=== PATIENT | male | born 1975 | race Caucasian/White ===

== ENCOUNTER 2024-02-25 08:45 | Inpatient (IN) | payer OTHER ==
--- NOTE | 2024-02-25 09:02 | ED ---
General Adult HPI - General Stated complaint: Chest pain Time Seen by Provider: 02/25/24 08:49 Source: patient, EMS Mode of arrival: EMS Limitations: no limitations - History of Present Illness Initial comments: Patient is a 48-year-old male presenting to the emergency department with concerns with chest discomfort. Discomfort started last night and has progressed since that time. Discomfort is starting to become severe. Patient had aspirin and nitroglycerin by EMS with mild improvement of symptoms. Discomfort feels like burning. Patient did have some nausea earlier however that has resolved. No dyspnea. No cardiac history. No history of similar symptoms previously. - Related Data Allergies Allergy/AdvReac Type Severity Reaction Status Date / Time No Known Allergies Allergy Verified 02/25/24 09:01 Review of Systems ROS Statement: Those systems with pertinent positive or pertinent negative responses have been documented in the HPI. ROS Other: All systems not noted in ROS Statement are negative. Constitutional: Denies: fever Eyes: Denies: eye pain ENT: Denies: ear pain Respiratory: Denies: dyspnea Cardiovascular: Reports: as per HPI, chest pain Gastrointestinal: Denies: abdominal pain Musculoskeletal: Denies: back pain Past Medical History Past Medical History: No Reported History Smoking Status: Current every day smoker Past Alcohol Use History: None Reported Past Drug Use History: None Reported General Exam Limitations: no limitations General appearance: alert, in no apparent distress Head exam: Present: normocephalic Eye exam: Present: normal appearance Neck exam: Present: normal inspection Respiratory exam: Present: normal lung sounds bilaterally Cardiovascular Exam: Present: regular rate, normal rhythm, normal heart sounds Expanded Peripheral pulses: 2+: Radial (R), Radial (L), Posterior Tibialis (R), Posterior Tibialis (L) GI/Abdominal exam: Present: soft. Absent: tenderness Extremities exam: Present: normal inspection. Absent: pedal edema, calf tenderness Neurological exam: Present: alert Psychiatric exam: Present: normal affect, normal mood Skin exam: Present: normal color Course Vital Signs 02/25/24 02/25/24 02/25/24 08:58 09:00 09:42 Temperature 98 F Pulse Rate 74 71 Respiratory 20 20 20 Rate Blood Pressure 118/77 111/76 O2 Sat by Pulse 100 99 Oximetry - Reevaluation(s) Reevaluation #1: 02/25/24 0858 Cardiology has been paged EKG Findings - EKG Results: EKG: interpreted by ERMD (Septal Q waves with borderline ST change. Inferior ST depression.), sinus rhythm, normal axis Medical Decision Making - Medical Decision Making EKG #2 also interpreted by myself shows sinus rhythm with a rate of 73. Normal axis. Septal Q waves with borderline ST change. Inferior ST depression. EKG #3 also interpreted by myself shows sinus rhythm with a rate of 70. Normal axis. Septal Q waves with nonspecific borderline ST change, Case was discussed with Dr. Piña who did review EKGs and does not recommend STEMI activation. EKG #3 at 9:46 AM shows sinus rhythm with a rate of 78. Normal axis. Septal Q waves with ST elevation. ST depression inferior and lateral. Patient reevaluated with increasing symptoms. EKG is worsening. STEMI alert has been called. Was pt. sent in by a medical professional or institution (, PA, EMPLOYMENT PROGRAM REPRESENTATIVE, urgent care, hospital, or skilled nursing...) When possible be specific @ -No Did you speak to anyone other than the patient for history (EMS, parent, family, police, friend...)? What history was obtained from this source @ -No Did you review nursing and triage notes (agree or disagree)? Why? @ -I reviewed and agree with nursing and triage notes Were old charts reviewed (outside hosp., previous admission, EMS record, old EKG, old radiological studies, urgent care reports/EKG's, skilled nursing records)? Report findings @ -No old charts were reviewed Differential Diagnosis (chest pain, altered mental status, abdominal pain women, abdominal pain men, vaginal bleeding, weakness, fever, dyspnea, syncope, headache, dizziness, GI bleed, back pain, seizure, CVA, palpatations, mental health, musculoskeletal)? @ -Differential Chest Pain: Stable Angina, Unstable Angina, STEMI, NSTEMI Aortic Dissection, Pneumothorax, Musculoskeletal, Esophageal Spasm GERD, Cholecystitis, Pancreatitis, Zoster, th is is not meant to be an all-inclusive list. EKG interpreted by me (3pts min.). @ -As above X-rays interpreted by me (1pt min.). @ -Chest x-ray interpreted by myself shows no acute process CT interpreted by me (1pt min.). @ -None done U/S interpreted by me (1pt. min.). @ -None done What testing was considered but not performed or refused? (CT, X-rays, U/S, labs)? Why? @ -None What meds were considered but not given or refused? Why? @ -None Did you discuss the management of the patient with other professionals (professionals i.e. , PA, EMPLOYMENT PROGRAM REPRESENTATIVE, lab, RT, psych nurse, social services designee, seismographer, teacher, dog control officer, employment case manager)? Give summary @ -Case discussed with Dr. Piña who will take patient to the [facility]. See above regarding additional first discussion. Was smoking cessation discussed for >3mins.? @ -No Was critical care preformed (if so, how long)? @ -33 minutes critical care time Were there social determinants of health that impacted care today? How? (Homelessness, low income, unemployed, alcoholism, drug addiction, transportation, low edu. Level, literacy, decrease access to med. care, alf, rehab)? @ -No Was there de-escalation of care discussed even if they declined (Discuss DNR or withdrawal of care, Hospice)? DNR status @ -No What co-morbidities impacted this encounter? (DM, HTN, Smoking, COPD, CAD, Cancer, CVA, ARF, Chemo, Hep., AIDS, mental health diagnosis, sleep apnea, morbid obesity)? @ -Tobacco use Was patient admitted / discharged? Hospital course, mention meds given and route, prescriptions, significant lab abnormalities, going to OR and other pertinent info. @ -Patient presents with chest discomfort with mild relief with nitro. Symptoms worsen and EKG and the fourth time shows STEMI. Patient will be admitted to the [facility]. [facility] paged for admission. Undiagnosed new problem with uncertain prognosis? @ -No Drug Therapy requiring intensive monitoring for toxicity (Heparin, Nitro, Insulin, Cardizem)? @ -No Were any procedures done? @ -No Diagnosis/symptom? @ -STEMI Acute, or Chronic, or Acute on Chronic? @ -Acute Uncomplicated (without systemic symptoms) or Complicated (systemic symptoms)? @ -Default Side effects of treatment? @ -No Exacerbation, Progression, or Severe Exacerbation? @ -No Poses a threat to life or bodily function? How? (Chest pain, [place], PA, pneumonia, PE, COPD, DKA, ARF, appy, cholecystitis, CVA, Diverticulitis, Homicidal, Suicidal, threat to staff... and all critical care pts) @ -Threat to cardiac function - Lab Data Result diagrams: 02/25/24 08:57 Lab Results 02/25/24 02/25/24 Range/Units 08:57 08:57 PT 10.3 (10.0-12.5) sec INR 0.9 (<1.2) APTT 24.2 (22.0-30.0) sec Sodium 137 (137-145) mmol/L Potassium 4.2 (3.5-5.1) mmol/L Chloride 102 (98-107) mmol/L Carbon Dioxide 23 (22-30) mmol/L Anion Gap 12 mmol/L BUN 25 H (9-20) mg/dL Creatinine 0.90 (0.66-1.25) mg/dL Est GFR (CKD-EPI)AfAm >90 (>60 ml/min/1.73 sqM) Est GFR (CKD-EPI)NonAf >90 (>60 ml/min/1.73 sqM) Glucose 123 H (74-99) mg/dL Calcium 10.9 H (8.4-10.2) mg/dL Magnesium 1.8 (1.6-2.3) mg/dL Total Bilirubin 0.3 (0.2-1.3) mg/dL AST 38 (17-59) U/L ALT 42 (4-49) U/L Alkaline Phosphatase 171 H (38-126) U/L Total Protein 7.0 (6.3-8.2) g/dL Albumin 4.6 (3.5-5.0) g/dL Critical Care Time Critical Care Time: Yes Disposition Clinical Impression: ST elevation myocardial infarction (STEMI) Disposition: ADMITTED IP TO THIS HOSP Condition: Serious Is patient prescribed a controlled substance at d/c from ED?: No Referrals: None,Stated [Primary Care Provider] - 1-2 days Time of Disposition: 09:54
[2024-02-25] MEDS: NITROGLYCERIN OINT 1 INCH/GM PACKET TOPICAL STA (09:17)
[2024-02-25] MEDS: MORPHINE SULFATE 4 MG/ML SYRINGE IV STA (09:17)
[2024-02-25] MEDS: ASPIRIN 81 MG PO STA (09:17)
[2024-02-25 09:26] LABS: INR 0.9 (<1.2); Partial Thromboplastin Time 24.2 sec (22.0-30.0); Prothrombin Time 10.3 sec (10.0-12.5)
[2024-02-25 09:39] LABS: ALT 42 U/L (4-49); AST 38 U/L (17-59); African American GFR (CKD) >90 (>60 ml/min/1.73 sqM); Albumin 4.6 g/dL (3.5-5.0); Alkaline Phosphatase 171 U/L (38-126); Anion Gap 12 mmol/L; Blood Urea Nitrogen 25 mg/dL (9-20); Calcium 10.9 mg/dL (8.4-10.2); Carbon Dioxide 23 mmol/L (22-30); Chloride 102 mmol/L (98-107); Glucose 123 mg/dL (74-99); Magnesium 1.8 mg/dL (1.6-2.3); Non-African American GFR(CKD) >90 (>60 ml/min/1.73 sqM); Potassium 4.2 mmol/L (3.5-5.1); Sodium 137 mmol/L (137-145); Total Bilirubin 0.3 mg/dL (0.2-1.3)
[2024-02-25] MEDS ORDERED: NITROGLYCERIN SL TABS 0.4 MG TAB SUBLINGUAL PRN (09:54)
[2024-02-25] MEDS: HEPARIN SODIUM 1,000 UN/ML (10ML VL) IV ONE ×2 (10:08→10:25)
[2024-02-25] MEDS: LIDOCAINE 1% INJ 10MG/ML (20 ML MDV) SQ ONE (10:08)
[2024-02-25] MEDS: MIDAZOLAM 2 MG/2 ML VIAL IVP ONE ×2 (10:08→10:46)
[2024-02-25] MEDS: fentaNYL (PF) 50 MCG/1 ML VIAL IVP ONE (10:08)
[2024-02-25] MEDS: ATORVASTATIN 80 MG TAB PO STA (10:08)
[2024-02-25 10:09] LABS: Basophils # (A) 0.1 k/uL (0-0.2); Basophils % (A) 0 %; Eosinophils # (A) 0.1 k/uL (0-0.7); Eosinophils % (A) 1 %; HCT 44.8 % (39.0-53.0); HGB 15.1 gm/dL (13.0-17.5); Lymphocytes # (A) 2.1 k/uL (1.0-4.8); Lymphocytes % (A) 19 %; MCH 34.1 pg (25.0-35.0); MCHC 33.7 g/dL (31.0-37.0); Mean Platelet Volume 6.9; Monocytes # (A) 0.5 k/uL (0-1.0); Monocytes % (A) 5 %; Neutrophils # (A) 7.7 k/uL (1.3-7.7); Neutrophils % (A) 72 %; Platelet Count 241 k/uL (150-450); RBC 4.43 m/uL (4.30-5.90); RDW 11.8 % (11.5-15.5); WBC 10.7 k/uL (3.8-10.6)
[2024-02-25] MEDS: SODIUM CHLORIDE 0.9% 1,000 ML IV ONE (10:10)
[2024-02-25] MEDS: VERAPAMIL 2.5 MG/ML 4 ML VIAL INTRAARTER ONE (10:10)
--- NOTE | 2024-02-25 10:10 | XR ---
EXAMINATION TYPE: XR chest 2V DATE OF EXAM: 02/25/2024 9:31 AM COMPARISON: None CLINICAL INDICATION: Male, 48 years old with history of Chest Pain, , TECHNIQUE: AP and lateral views FINDINGS: The cardiomediastinal silhouette, aorta, and pulmonary vasculature are within normal limits. Hazy hailey g densities relating to overlying soft tissue. Otherwise, lungs and pleural spaces are clear. IMPRESSION: No acute cardiopulmonary process. [facility], , 02/25/2024 10:08 AM
[2024-02-25] MEDS: NITROGLYCERIN 1000MCG/10ML SYRINGE INTRACORON ONE (10:16)
[2024-02-25] MEDS: TICAGRELOR 90 MG TAB PO ONE (10:25)
--- NOTE | 2024-02-25 10:33 | P.CRDCN ---
History of Present Illness Consult date: 02/25/24 History of present illness: HISTORY OF PRESENTING ILLNESS 48-year-old male with no prior cardiovascular history presented to the hospital because of new onset substernal chest pressure and chest squeezing sensation. Initially on admission to the ER, his initial EKG showed sinus rhythm with 0.[address] elevations in V1 and V2. This was not reading the STEMI criteria. During his stay in the ER, he had worsening of his symptoms and repeat ECG showed significant change with increased ST elevations in V1 V2 and V3. For this Durable Medical Equipment Repairer was activated based on the EKG from 9:48 AM. Patient denies any prior cardiovascular history. He denies any prior history of stroke or any recent surgeries. Social Hx: Does report smoking 1 pack/day. Denies any marijuana use. Denies any heavy alcohol use or any drug use. Reports occasional alcohol use. Family Hx: Does report family history of coronary artery disease hypertension and diabetes. REVIEW OF SYSTEMS 14 point review of system is negative except what is mentioned above in HPI. PHYSICAL EXAMINATION Neck: Brisk carotid upstroke, no jugular venous distention. Lungs: Clear to auscultation. Heart: Regular rate and rhythm, S1-S2, no S3, no murmur or rub. Abdomen: Soft nontender, positive bowel sounds. Extremities: No edema, intact distal pulses. Neuro: Alert, oritented, no focal deficits. Detailed neuro exam was not performed. ASSESSMENT Anterior STEMI Tobacco smoker PLAN Plan for emergent cardiac authorization Obtain echocardiogram Obtain NT-proBNP, HbA1c, lipid panels, TSH levels Further recommendations to follow cath results Twin Piña MD, FACC, RPVI Thank you for allowing [facility] to participate in this patient's care. Feel free to reach out in case of any followup questions. Past Medical History Past Medical History: No Reported History Additional Past Medical History / Comment(s): kidney stone Additional Past Surgical History / Comment(s): orak surgery Smoking Status: Current every day smoker Past Alcohol Use History: None Reported Past Drug Use History: None Reported Medications and Allergies Allergies Allergy/AdvReac Type Severity Reaction Status Date / Time No Known Allergies Allergy Verified 02/25/24 09:01 Physical Exam Vitals: Vital Signs Temp Pulse Resp BP Pulse Ox 02/25/24 09:50 45 L 20 101/60 98 02/25/24 09:42 20 02/25/24 09:00 71 20 111/76 99 02/25/24 08:58 98 F 74 20 118/77 100 Intake and Output 02/24/24 02/25/24 02/25/24 22:59 06:59 14:59 Other: Weight 88.451 kg Results 02/25/24 08:57 02/25/24 08:57 Cardiac Enzymes 02/25/24 Range/Units 08:57 AST 38 (17-59) U/L Coagulation 02/25/24 Range/Units 08:57 PT 10.3 (10.0-12.5) sec APTT 24.2 (22.0-30.0) sec CBC 02/25/24 Range/Units 08:57 WBC 10.7 H (3.8-10.6) k/uL RBC 4.43 (4.30-5.90) m/uL Hgb 15.1 (13.0-17.5) gm/dL Hct 44.8 (39.0-53.0) % Plt Count 241 (150-450) k/uL Comprehensive Metabolic Panel 02/25/24 Range/Units 08:57 Sodium 137 (137-145) mmol/L Potassium 4.2 (3.5-5.1) mmol/L Chloride 102 (98-107) mmol/L Carbon Dioxide 23 (22-30) mmol/L BUN 25 H (9-20) mg/dL Creatinine 0.90 (0.66-1.25) mg/dL Glucose 123 H (74-99) mg/dL Calcium 10.9 H (8.4-10.2) mg/dL AST 38 (17-59) U/L ALT 42 (4-49) U/L Alkaline Phosphatase 171 H (38-126) U/L Total Protein 7.0 (6.3-8.2) g/dL Albumin 4.6 (3.5-5.0) g/dL Current Medications Generic Name Dose Route Start Last Admin Trade Name Freq PRN Reason Stop Dose Admin Aspirin 325 mg 02/26/24 09:00 Aspirin 325 Mg Tab PO DAILY [facility] Heparin Sodium/Sodium Chloride 250 mls @ 10 mls/hr 02/25/24 10:00 25,000 unit/ Sodium Chloride IV .Q24H [facility] Protocol 11.306 UNITS/KG/HR Nitroglycerin 0.4 mg 02/25/24 09:54 Nitroglycerin Sl Tabs 0.4 Mg Tab SUBLINGUAL Q5M PRN Chest Pain Intake and Output 02/24/24 02/25/24 02/25/24 22:59 06:59 14:59 Other: Weight 88.451 kg Patient Weight 02/26/24 06:59 Weight 88.451 kg 02/25/24 08:57 02/25/24 08:57
[2024-02-25] MEDS: IOPAMIDOL-370 100ML BTL INJ ONE ×2 (10:36→11:15)
--- NOTE | 2024-02-25 10:41 | P.CARDCATH ---
Date of Procedure: 02/25/24 Description of Procedure: DIAGNOSTIC CORONARY ANGIOGRAPHY and LEFT HEART CATH REPORT PROCEDURES PERFORMED: Left heart catheterization Selective coronary angiography Moderate conscious sedation 13 mins Right radial access INDICATION: Anterior STEMI 48-year-old presented to the hospital because of increased substernal chest pressure which started suddenly this morning. EKG in the ER showed ST elevations in V1 and V2 concerning of anterior STEMI. For this Property Insurance Claims Examiner was activated and patient was taken to the Property Insurance Claims Examiner CONSENT: I have explained the procedural steps of above-mentioned procedures in layman's terms to the patient. I discussed the risks (including but not limited to stroke, emergent vascular or cardiac surgery or ), benefits and alternative therapies for the above-mentioned procedure. I discussed the risks of sedation/analgesia and blood product administration (if indicated). The patient has indicated understanding and acceptance of these risks. Conscious Sedation: Patient's ECG, heart rate, blood pressure, pulse oximetry were monitored throughout the duration of procedure under my direct supervision. [2] mg Versed and [50] mcg Fentanyl were used for induction of moderate conscious sedation. Total duration of moderate concious sedation [25] minutes. PROCEDURE: After explaining the risks, benefits and alternatives of the above mentioned procedures in detail to the patient, informed consent was obtained. Patient was taken to the catheterization lab, prepped and draped in usual sterile fashion using universal precuations. Ultrasound was used to identify the radial artery. 1% lidocaine was infiltrated over the right radial artery. A 6-Mohawk sheath was placed and secured in the right radial artery using modified Seldinger technique. The sheath was flushed and 5 mg verapamil was administered intra-arterially. J tipped wire was advanced under fluoroscopic guidance. 4000 units of IV heparin was given in the ER along with 325 mg of aspirin. Over the wire JR4 diagnostic catheter was advanced. The wire in place the catheter was manipulated to cross the aortic valve and entered into LV under fluoroscopy guidance. The wire was removed and the catheter was flushed. LV pressures were obtained and pullback was performed under fluoroscopy. Catheter was manipulated to selectively engage the right coronary ostium. Right coronary angiography was performed in different angiographic projections. The JR4 diagnostic catheter was exchanged for a JL 3.5 diagnostic catheter over the J-wire. The wire was removed, catheter was flushed and manipulated under fluoroscopy to selectively engaged the left coronary ostium. Left coronary angioplasty was performed in different angiographic projections. Catheter was removed over the wire. Radial sheath was flushed. The right radial sheath was removed and a TR band was placed with excellent patent hemostasis was achieved. The patient tolerated the procedure well. Patient was transported back to the post catheterization holding area in stable condition. Angiographic images were reviewed in detail. HEMODYNAMICS: Aortic Pressure: 140/90 mmHg. LV pressure: 140/10 mmHg. LVEDP 25 mmHg. There was no significant gradient across the aortic valve. SELECTIVE CORONARY ARTERIOGRAPHY: LEFT MAIN: The left main is short and large caliber vessel. It bifurcates into the LAD and circumflex. Left main appears angiographically normal. LEFT ANTERIOR DESCENDING CORONARY ARTERY: LAD is a large caliber vessel which wraps around to the apex. Proximal LAD appears angiographically normal. Mid LAD just after giving small diagonal branch and a septal branch is 100% occluded with JUANITA 0 flow. There are faint septal collaterals from right sided filling the LAD. LEFT CIRCUMFLEX CORONARY ARTERY: It is nondominant vessel. Left circumflex is a moderate caliber vessel. Proximal LCx has 30% stenosis. In mid segment it trifurcates and medium size OM1 branch, small OM 2 and a small AV groove branch. Midportion of OM1 has 90 to 99%. JUANITA-3 flow RIGHT CORONARY ARTERY: Dominant vessel. RCA is medium caliber vessel. Proximal RCA has mild luminal irregularities. Mid RCA has 40% eccentric stenosis. Gives rise to a small RV marginal branch. Distal RCA has mild luminal irregularities in the range of 20-30%. It bifurcates into PDA and PL branches. They have my luminal irregularities. IMPRESSION: Anterior STEMI due to 100% mid LAD stenosis, JUANITA 0 flow 90 to 99% mid OM1 stenosis 40% mid RCA disease PLAN: Emergent PCI of LAD by Dr. Urrutia. Case discussed Staged PCI of OM1 prior to discharge Further recommendations to follow Performing Physician Twin Piña MD, FACC, RPVI Thank you for allowing [facility] to participate in this patient's care. Feel free to reach out in case of any followup questions.
[2024-02-25] MEDS: SODIUM CHLORIDE 0.9% 1,000 ML in EMPTY BAG 1 BAG IV SCH (11:41)
[2024-02-25 11:46] LABS: Glucose,Whole Blood 138 mg/dL (70-110)
[2024-02-25] MEDS ORDERED: ATROPINE SULFATE 0.1 MG/ML 10ML SYRINGE IV PRN (11:47)
[2024-02-25] MEDS ORDERED: RX INFO: IV CONTRAST WAS GIVEN 1 EACH MISC MISCELLANE PRN (11:47)
[2024-02-25] MEDS ORDERED: MAG HYDROX/AL HYDROX/SIMETH 30 ML CUP PO PRN (11:47)
[2024-02-25] MEDS ORDERED: ZOLPIDEM 5 MG TAB PO PRN (11:47)
[2024-02-25] MEDS: METOPROLOL SUCCINATE (ER) 25 MG TAB.ER.24H PO STA (12:59)
--- NOTE | 2024-02-25 14:08 | P.PRCINT ---
Percutaneous Coronary Int. - Percutaneous Coronary Intervention Percutaneous Coronary Intervention: PROCEDURES PERFORMED: Left coronary angiography, IVUS LAD, PCI mid LAD with a 2.5 x 33mm Xience, mid to distal LAD with a 2.5 x 33mm Xience and distal LAD with a 2.5 x 15mm Xience, post dilated with a 2.5mm and 3.5mm NC balloon INDICATION: Anterior STEMI CONSENT:I have discussed the risks, benefits and alternative therapies for the above-mentioned procedure and for both sedation/analgesia as well as necessary blood product administration, if indicated, as they pertain to this patient. The patient has indicated understanding and acceptance of the risks and procedures discussed. PROCEDURE: After the risks, benefits and alternatives of the above mentioned procedure explained in detail with the patient, informed consent was obtained. Patient was taken to the catheterization lab and prepped and draped in usual fashion. A 6-Iranian sheath had previously been placed in the right radial artery. the decision was made to perform PCI of the LAD. Heparin was given. A 6-Iranian CLS 3.5 guide was used to engage the left main. There was some difficulty requiring the blockage with wires going down into the septal branch. Eventually using a super across microcatheter, a 0.014 was for wire was advanced to the distal LAD. Pre-balloon angioplasty was performed with a 2.5 x 12 mm balloon. Intravascular ultrasound showed diffuse disease of the entire proximal, mid LAD. Reference vessel proximally was 3.5 mm however distally 2.5 mm. A 2.5 x 33 mm drug-eluting stent was placed in the proximal and mid LAD area at the proximal portion of the stent was postdilated with a 3.5 mm noncompliant balloon. There was still diffuse mid and distal disease and therefore the admitting LAD was covered with a 2.5 x 33 mm in the distal LAD with a 2.5 x 15 mm drug-eluting stent. Both these stents were postdilated with 2.5 mm noncompliant balloons. Final angiograms were performed. Pre-interventional there was 100% stenosis and JUANITA 0 flow and postintervention there was less than 10% stenosis and JUANITA-3 flow. The right radial sheath was removed and a TR band was placed with hemostasis achieved. The patient tolerated the procedure well. Patient was transported back to the post catheterization holding area in stable condition. Conscious Sedation: Patient was monitored under the direct supervision of myself for conscious sedation using Versed and fentanyl for a total duration of 45 minutes HEMODYNAMICS: Ao: 110/78 SELECTIVE CORONARY ARTERIOGRAPHY: LEFT MAIN: The left main is a large caliber vessel which bifurcates into the LAD and circumflex. There is no significant stenosis. LEFT ANTERIOR DESCENDING CORONARY ARTERY: LAD is a large caliber vessel which wraps around to the apex. There is mid LAD 100% stenosis just after a small caliber diagonal 1 branch. After ballooning there is noted to be mid to distal diffuse LAD 80% stenosis and apical/distal LAD 95% stenosis. LEFT CIRCUMFLEX CORONARY ARTERY: Left circumflex is a moderate caliber vessel with 85% stenosis of OM1 and small caliber OM 2 with 60-70% stenosis. RIGHT CORONARY ARTERY: The right coronary artery was not imaged, see separate report FINAL IMPRESSION: 1. CAD as described above including mid LAD 100% stenosis, OM1 85% stenosis 2. S/p PCI mid LAD with a 2.5 x 33mm Xience, mid to distal LAD with a 2.5 x 33mm Xience and distal LAD with a 2.5 x 15mm Xience, post dilated with a 2.5mm and 3.5mm NC balloon PLAN: 1. Aggressive risk factor modification per most recent ACC/AHA guidelines. 2. Continue dual antiplatelets with aspirin and Brillinta for 12 months 3. Tobacco cessation discussed in detail with patient. Gave patient paperwork for [place] quit line. 4. Goal LDL less than 70 5. Stage PCI of OM1 1
--- NOTE | 2024-02-25 14:24 | P.HPIM ---
History of Present Illness H&P Date: 02/25/24 History of present illness; patient is a 48-year-old gentleman with no significant past medical history who presented to the ER because of chest pain. Patient stated he was all right last night when he started experiencing chest pain that was central location, squeezing in nature, nonradiating, no aggravating or relieving factors associated with chest pain. Patient denies any shortness of breath. Patient was complaining of nausea but no vomiting. There is no complaint of orthopnea or PND. Because of the chest pain, patient presented the ER Initial lab work done in the ER showed WBC 10.7, hemoglobin 15.1, platelet count 241, sodium 137, potassium 4.2, BUN 25, creatinine 0.9, glucose 123, calcium 10.9, AST 38, ALT 42, troponin 1.10 EKG done in the ER showed heart rate of 78, ST segment elevation in V2 V3, ST segment depression seen in leads II, III and aVF, no T-wave inversions seen. Chest x-ray done in the ER showed acute cardiopulmonary process Fbi Sharpshooter was activated and patient underwent cardiac cath showing mid LAD 100% stenosis, OM1 85% stenosis, S/p PCI mid LAD with a 2.5 x 33mm Xience, mid to distal LAD with a 2.5 x 33mm Xience and distal LAD with a 2.5 x 15mm Xience, Patient admitted to internal medicine service REVIEW OF SYSTEMS: CONSTITUTIONAL: No fever, no malaise, no fatigue. HEENT: No recent visual problems or hearing problems. Denied any sore throat. CARDIOVASCULAR: As mentioned above PULMONARY: As mentioned above GASTROINTESTINAL: No diarrhea, no nausea, no vomiting, no abdominal pain. NEUROLOGICAL: No headaches, no weakness, no numbness. HEMATOLOGICAL: Denies any bleeding or petechiae. GENITOURINARY: Denies any burning micturition, frequency, or urgency. MUSCULOSKELETAL/RHEUMATOLOGICAL: Denies any joint pain, swelling, or any muscle pain. ENDOCRINE: Denies any polyuria or polydipsia. The rest of the 14-point review of systems is negative. PHYSICAL EXAMINATION: GENERAL: The patient is alert and oriented x3, not in any acute distress. Well developed, well nourished. HEENT: Pupils are round and equally reacting to light. EOMI. No scleral icterus. No conjunctival pallor. Normocephalic, atraumatic. No pharyngeal erythema. No thyromegaly. CARDIOVASCULAR: S1 and S2 present. No murmurs, rubs, or gallops. PULMONARY: Chest is clear to auscultation, no wheezing or crackles. ABDOMEN: Soft, nontender, nondistended, normoactive bowel sounds. No palpable organomegaly. MUSCULOSKELETAL: No joint swelling or deformity. EXTREMITIES: No cyanosis, clubbing, or pedal edema. NEUROLOGICAL: Gross neurological examination did not reveal any focal deficits. SKIN: No rashes. Assessment and plan Acute ST elevation [place] Hypertension hyperlipidemia Monitor vital signs Monitor CBC Monitor CMP Continue telemetry monitoring cardiac cath showing mid LAD 100% stenosis, OM1 85% stenosis, S/p PCI mid LAD with a 2.5 x 33mm Xience, mid to distal LAD with a 2.5 x 33mm Xience and distal LAD with a 2.5 x 15mm Xience, Ordered aspirin, Lipitor, Brilinta Ordered pharmacy dose heparin Ordered losartan 2D echo ordered Cardiology following, planning staged PCI of OM1 Labs and medication were reviewed.. Continue same treatment. Continue with s ymptomatic treatment. Resume home medication. Monitor labs and vitals. DVT and GI prophylaxis. Further recommendations as per clinical course of the patient Dictation was produced using [employer] dictation software. please excuse any grammatical, word or spelling errors. Past Medical History Past Medical History: No Reported History Additional Past Medical History / Comment(s): kidney stone History of Any Multi-Drug Resistant Organisms: None Reported Additional Past Surgical History / Comment(s): oral surgery; uretal stent and ultrasonic wave therapy Past Anesthesia/Blood Transfusion Reactions: No Reported Reaction Past Psychological History: No Psychological Hx Reported Smoking Status: Current every day smoker Past Alcohol Use History: None Reported Past Drug Use History: None Reported Medications and Allergies Home Medications Medication Instructions Recorded Confirmed Type Acetaminophen/Caffeine [Excedrin 1 tab PO Q4H PRN 02/25/24 02/25/24 History Tension Headache] Allergies Allergy/AdvReac Type Severity Reaction Status Date / Time No Known Allergies Allergy Verified 02/25/24 12:24 Physical Exam Vitals: Vital Signs Temp Pulse Resp BP Pulse Ox 02/25/24 13:10 62 16 95 02/25/24 13:00 61 14 98 02/25/24 12:50 63 10 L 97 12/27/24 12:40 63 14 97 02/25/24 12:30 60 16 95 02/25/24 12:20 64 14 96 02/25/24 12:10 60 17 95 02/25/24 12:00 61 17 97 02/25/24 11:50 62 16 97 02/25/24 11:40 97.7 F 74 16 115/79 96 02/25/24 09:50 45 L 20 101/60 98 02/25/24 09:42 20 02/25/24 09:00 71 20 111/76 99 02/25/24 08:58 98 F 74 20 118/77 100 Intake and Output 02/24/24 02/25/24 02/25/24 22:59 06:59 14:59 Intake Total 110 Output Total 800 Balance -690 Intake: IV 50 Intake, IV Titration 60 Amount Sodium Chloride 0.9% 1, 60 000 ml In Empty Bag 1 bag @ 60 mls/hr IV .[id number] [facility] Rx#:[id number] Output: Urine 800 Other: Voiding Method Urinal Weight 91 kg Results CBC & Chem 7: 02/25/24 08:57 02/25/24 08:57 Labs: Abnormal Lab Results - Last 24 Hours (Table) 02/25/24 02/25/24 02/25/24 Range/Units 08:57 08:57 08:57 WBC 10.7 H (3.8-10.6) k/uL MCV 101.0 H (80.0-100.0) fL BUN 25 H (9-20) mg/dL Glucose 123 H (74-99) mg/dL POC Glucose (mg/dL) (70-110) mg/dL Calcium 10.9 H (8.4-10.2) mg/dL Alkaline Phosphatase 171 H (38-126) U/L Troponin I 1.100 H* (0.000-0.034) ng/mL 02/25/24 Range/Units 11:43 WBC (3.8-10.6) k/uL MCV (80.0-100.0) fL BUN (9-20) mg/dL Glucose (74-99) mg/dL POC Glucose (mg/dL) 138 H (70-110) mg/dL Calcium (8.4-10.2) mg/dL Alkaline Phosphatase (38-126) U/L Troponin I (0.000-0.034) ng/mL Thrombosis Risk Factor Assmnt - Choose All That Apply Any of the Below Risk Factors Present?: No Other Risk Factors: Yes Each Risk Factor Represents 2 Points: Patient confined to bed Other congenital or acquired thrombophilia - If yes, enter type in comment: No Thrombosis Risk Factor Assessment Total Risk Factor Score: 2 Thrombosis Risk Factor Assessment Level: Low Risk
--- NOTE | 2024-02-25 16:01 | P.PN ---
Subjective Progress Note Date: 02/25/24 Plan for staged PCI of OM1 possibly on Wednesday with Dr Urrutia Objective - Vital Signs Vital signs: Vital Signs Temp 97.7 F 02/25/24 11:40 Pulse 65 02/25/24 15:00 Resp 23 02/25/24 15:00 BP 126/88 02/25/24 15:00 Pulse Ox 94 L 02/25/24 15:00 FiO2 Intake & Output 02/24/24 02/25/24 02/25/24 18:59 06:59 18:59 Intake Total 230 Output Total 800 Balance -570 Weight 91 kg Intake: IV 50 Intake, IV Titration 180 Amount Sodium Chloride 0.9% 1, 180 000 ml In Empty Bag 1 bag @ 60 mls/hr IV .[id number] [facility] Rx#:[id number] Output: Urine 800 Other: Voiding Method Urinal - Labs CBC & Chem 7: 02/25/24 08:57 02/25/24 08:57 Labs: Abnormal Lab Results - Last 24 Hours (Table) 02/25/24 02/25/24 02/25/24 Range/Units 08:57 08:57 08:57 WBC 10.7 H (3.8-10.6) k/uL MCV 101.0 H (80.0-100.0) fL APTT (22.0-30.0) sec BUN 25 H (9-20) mg/dL Glucose 123 H (74-99) mg/dL POC Glucose (mg/dL) (70-110) mg/dL Calcium 10.9 H (8.4-10.2) mg/dL Alkaline Phosphatase 171 H (38-126) U/L Troponin I 1.100 H* (0.000-0.034) ng/mL 02/25/24 02/25/24 02/25/24 Range/Units 11:43 13:45 13:45 WBC (3.8-10.6) k/uL MCV (80.0-100.0) fL APTT 73.7 H (22.0-30.0) sec BUN (9-20) mg/dL Glucose (74-99) mg/dL POC Glucose (mg/dL) 138 H (70-110) mg/dL Calcium (8.4-10.2) mg/dL Alkaline Phosphatase (38-126) U/L Troponin I 31.000 H* (0.000-0.034) ng/mL
[2024-02-25] MEDS: HEPARIN SOD,PORK IN 0.45% NACL 25,000 UNIT in 0.45% NACL 1 250ML.BAG IV SCH (16:06)
[2024-02-25] MEDS: ISOSORBIDE MONONITRATE ER 30 MG TAB.ER.24H PO SCH (17:20)
[2024-02-25] MEDS: ATORVASTATIN 40 MG TAB PO SCH (20:41)
[2024-02-25] MEDS: TICAGRELOR 90 MG TAB PO SCH (20:41)
[2024-02-26 05:01] LABS: Basophils % (A) 0 %; Eosinophils # (A) 0.1 k/uL (0-0.7); Eosinophils % (A) 1 %; HCT 42.3 % (39.0-53.0); HGB 14.2 gm/dL (13.0-17.5); Lymphocytes # (A) 1.5 k/uL (1.0-4.8); Lymphocytes % (A) 11 %; MCH 34.1 pg (25.0-35.0); MCHC 33.6 g/dL (31.0-37.0); MCV 101.5 fL (80.0-100.0); Mean Platelet Volume 6.7; Monocytes # (A) 0.8 k/uL (0-1.0); Monocytes % (A) 6 %; Neutrophils # (A) 11.1 k/uL (1.3-7.7); Neutrophils % (A) 81 %; Platelet Count 229 k/uL (150-450); RBC 4.17 m/uL (4.30-5.90); WBC 13.7 k/uL (3.8-10.6)
[2024-02-26 05:19] LABS: ALT 58 U/L (4-49); AST 141 U/L (17-59); African American GFR (CKD) >90 (>60 ml/min/1.73 sqM); Albumin 4.1 g/dL (3.5-5.0); Alkaline Phosphatase 141 U/L (38-126); Anion Gap 3 mmol/L; Blood Urea Nitrogen 13 mg/dL (9-20); Calcium 9.5 mg/dL (8.4-10.2); Carbon Dioxide 24 mmol/L (22-30); Chloride 110 mmol/L (98-107); Glucose 115 mg/dL (74-99); Non-African American GFR(CKD) >90 (>60 ml/min/1.73 sqM); Sodium 137 mmol/L (137-145); Total Bilirubin 0.6 mg/dL (0.2-1.3); Total Protein 6.4 g/dL (6.3-8.2)
[2024-02-26] MEDS: ASPIRIN 81 MG PO SCH (08:41)
[2024-02-26] MEDS: LOSARTAN 25 MG TAB PO SCH (08:41)
[2024-02-26] MEDS ORDERED: ASPIRIN 325 MG TAB PO SCH (09:00)
[2024-02-26 10:21] LABS: LDL Cholesterol,Calculated 106.6 mg/dL (0.0-131.0)
--- NOTE | 2024-02-26 11:32 | CA ---
Transthoracic Echo Report Name: Darian Nguyen Age: 48 Gender: M : 1975 Exam Date: 02/26/2024 07:40 Exam Location: [facility] Ht (in): 68 Wt (lb): 200 Ordering Physician: Lucien Urrutia DO ([email or web address]) Attending/Referring Phys: Welding Instructor Tasia Tolentino RDCS Procedure CPT: Indications: nstemi Cardiac Hx: Technical Quality: Good Contrast 1: Total Dose (mL): Contrast 2: Total Dose (mL): MEASUREMENTS (Male / Female) Normal Values 2D ECHO LV Diastolic Diameter PLAX 5.0 cm 4.2 - 5.9 / 3.9 - 5.3 cm LV Systolic Diameter PLAX 3.5 cm IVS Diastolic Thickness 1.2 cm 0.6 - 1.0 / 0.6 - 0.9 cm LVPW Diastolic Thickness 1.1 cm 0.6 - 1.0 / 0.6 - 0.9 cm LV Relative Wall Thickness 0.5 RV Internal Dim ED PLAX 3.5 cm LA Systolic Diameter LX 3.2 cm 3.0 - 4.0 / 2.7 - 3.8 cm LV Diastolic Volume MOD BP 67.3 cm??? 67 - 155 / 56 - 104 cm??? LV Systolic Volume MOD BP 31.7 cm??? 22 - 58 / 19 - 49 cm??? LV Ejection Fraction MOD BP 52.9 % >= 55 % LV Cardiac Index MOD BP 1348.1 cm???/min???m??? LV Diastolic Volume MOD 4C 87.9 cm??? LV Systolic Volume MOD 4C 40.6 cm??? LV Ejection Fraction MOD 4C 53.9 % LV Cardiac Index MOD 4C 1793.0 cm???/min???m??? LV Diastolic Length 4C 7.7 cm LV Systolic Length 4C 6.9 cm LV Diastolic Volume MOD 2C 60.2 cm??? LV Systolic Volume MOD 2C 27.3 cm??? LV Ejection Fraction MOD 2C 54.6 % LV Cardiac Index MOD 2C 1243.8 cm???/min???m??? LV Diastolic Length 2C 8.1 cm LV Systolic Length 2C 7.3 cm M-MODE Aortic Root Diameter MM 3.5 cm AV Cusp Separation MM 2.3 cm DOPPLER MV Area PHT 5.2 cm??? Mitral E Point Velocity 73.0 cm/s Mitral A Point Velocity 81.6 cm/s Mitral E to A Ratio 0.9 MV Deceleration Time 146.8 ms FINDINGS Left Ventricle Left ventricular ejection fraction is estimated at 45-50 %. Mildly increased septal wall thickness. Mildly decreased left ventricular ejection fraction. Apical anteir , apical septal, apical inferir, apical anterior hypokinesis. Right Ventricle Mild right ventricular dilatation. Unable to estimate the right ventricular systolic pressure. Right Atrium Normal right atrial size. No right atrial thrombus or mass seen. Left Atrium Normal left atrial size. No left atrial thrombus or mass present. Mitral Valve Structurally normal mitral valve. No mitral stenosis, regurgitation or prolapse. Aortic Valve Aortic valve sclerosis. No aortic valve stenosis or regurgitation. Tricuspid Valve No tricuspid stenosis, regurgitation or prolapse. Structurally normal tricuspid valve. Pulmonic Valve Structurally normal pulmonic valve. No pulmonic regurgitation. Pericardium No pericardial or pleural effusion. Aorta Normal size aortic root and proximal ascending aorta. CONCLUSIONS Mild to moderate LV systolic dysfunction with an ejection fraction of 40-45% Apical hypokinesis suggestive of prior myocardial infarction Previewed by: Dr. Jb Edgar MD (Electronically Signed) Final Date: 26 February 2024 11:32
[2024-02-26] MEDS: ACETAMINOPHEN TAB 500 MG TAB PO PRN (12:04)
--- NOTE | 2024-02-26 15:19 | P.PN ---
Subjective Progress Note Date: 02/26/24 patient is a 48-year-old gentleman with no significant past medical history who presented to the ER because of chest pain. Patient stated he was all right last night when he started experiencing chest pain that was central location, squeezing in nature, nonradiating, no aggravating or relieving factors as sociated with chest pain. Patient denies any shortness of breath. Patient was complaining of nausea but no vomiting. There is no complaint of orthopnea or PND. Because of the chest pain, patient presented the ER Initial lab work done in the ER showed WBC 10.7, hemoglobin 15.1, platelet count 241, sodium 137, potassium 4.2, BUN 25, creatinine 0.9, glucose 123, calcium 10.9, AST 38, ALT 42, troponin 1.10 EKG done in the ER showed heart rate of 78, ST segment elevation in V2 V3, ST segment depression seen in leads II, III and aVF, no T-wave inversions seen. Chest x-ray done in the ER showed acute cardiopulmonary process Carbide Powder Processor was activated and patient underwent cardiac cath showing mid LAD 100% stenosis, OM1 85% stenosis, S/p PCI mid LAD with a 2.5 x 33mm Xience, mid to distal LAD with a 2.5 x 33mm Xience and distal LAD with a 2.5 x 15mm Xience, Patient admitted to internal medicine service 02/25. Patient seen examined denies any chest pain. States he feels better 2D echo done showed LV systolic function with an EF of 40 to 45%, apical hypokinesis. REVIEW OF SYSTEMS: CONSTITUTIONAL: No fever, no malaise,. CARDIOVASCULAR: No chest pain, no palpitations, no syncope. PULMONARY: No shortness of breath, no cough, GASTROINTESTINAL: No diarrhea, no nausea, no vomiting, no abdominal pain. NEUROLOGICAL: No headaches, no weakness, PHYSICAL EXAMINATION: GENERAL: The patient is alert and oriented x3, not in any acute distress. Well developed, well nourished. HEENT: Pupils are round and equally reacting to light. EOMI. No scleral icterus. No conjunctival pallor. Normocephalic, atraumatic. No pharyngeal erythema. No thyromegaly. CARDIOVASCULAR: S1 and S2 present. No murmurs, rubs, or gallops. PULMONARY: Chest is clear to auscultation, no wheezing or crackles. ABDOMEN: Soft, nontender, nondistended, normoactive bowel sounds. No palpable organomegaly. MUSCULOSKELETAL: No joint swelling or deformity. EXTREMITIES: No cyanosis, clubbing, or pedal edema. NEUROLOGICAL: Gross neurological examination did not reveal any focal deficits. SKIN: No rashes. Assessment and plan Acute ST elevation [place] Hypertension hyperlipidemia Monitor vital signs Monitor CBC Monitor CMP Continue telemetry monitoring 2D echo done showed LV systolic function with an EF of 40 to 45%, apical hypokinesis. cardiac cath showing mid LAD 100% stenosis, OM1 85% stenosis, S/p PCI mid LAD with a 2.5 x 33mm Xience, mid to distal LAD with a 2.5 x 33mm Xience and distal LAD with a 2.5 x 15mm Xience, continue aspirin, Lipitor, Brilinta continue losartan Cardiology following, planning staged PCI of OM1 Labs and medication were reviewed.. Continue same treatment. Continue with sym ptomatic treatment. Resume home medication. Monitor labs and vitals. DVT and GI prophylaxis. Further recommendations as per clinical course of the patient Dictation was produced using [employer] dictation software. please excuse any grammatical, word or spelling errors. Objective - Vital Signs Vital signs: Vital Signs Temp 99 F 02/26/24 12:00 Pulse 75 02/26/24 12:00 Resp 17 02/26/24 12:00 BP 100/76 02/26/24 12:00 Pulse Ox 94 L 02/26/24 12:00 FiO2 Intake & Output 02/25/24 02/26/24 02/26/24 18:59 06:59 18:59 Intake Total 410 300 500 Output Total 1850 1250 200 Balance -1440 -950 300 Weight 91 kg 87.4 kg 87.4 kg Intake: IV 50 Intake, IV Titration 360 300 Amount Sodium Chloride 0.9% 1, 360 300 000 ml In Empty Bag 1 bag @ 60 mls/hr IV .[id number] [facility] Rx#:[id number] Oral 500 Output: Urine 1850 1250 200 Other: Voiding Method Urinal Urinal Urinal # Voids 1 - Labs CBC & Chem 7: 02/26/24 04:44 02/26/24 04:44 Labs: Abnormal Lab Results - Last 24 Hours (Table) 02/25/24 02/26/24 02/26/24 Range/Units 16:39 04:44 04:44 WBC 13.7 H (3.8-10.6) k/uL RBC 4.17 L (4.30-5.90) m/uL MCV 101.5 H (80.0-100.0) fL Neutrophils # 11.1 H (1.3-7.7) k/uL Chloride 110 H (98-107) mmol/L Glucose 115 H (74-99) mg/dL AST 141 H (17-59) U/L ALT 58 H (4-49) U/L Alkaline Phosphatase 141 H (38-126) U/L Troponin I 42.900 H* (0.000-0.034) ng/mL Triglycerides 183.00 H (0.00-149.00) mg/dL HDL Cholesterol 35.80 L (40.00-60.00) mg/dL
[2024-02-27 08:30] LABS: Mean Platelet Volume 6.7; Platelet Count 226 k/uL (150-450)
[2024-02-27] MEDS ORDERED: NITROGLYCERIN SL TABS 0.4 MG TAB SUBLINGUAL PRN (13:39)
[2024-02-27] MEDS ORDERED: ALPRAZolam 0.25 MG TAB PO PRN (13:39)
[2024-02-27] MEDS ORDERED: ALPRAZolam 0.5 MG TAB PO PRN (13:39)
--- NOTE | 2024-02-27 13:42 | P.PN ---
Subjective HISTORY OF PRESENT ILLNESS: This is a 48-year-old male who presented to the hospital as an anterior STEMI. Patient underwent cardiac catheterization on 02/25/2024 revealing 100% mid LAD stenosis and 85% OM1 stenosis. Patient underwent stenting of the mid LAD, mid to distal LAD, and distal LAD. Patient examined this morning at the bedside. P atient denies chest pain or pressure. He denies shortness of breath. Vital signs are stable. Echocardiogram completed revealing ejection fraction 45 to 50%, apical anterior, apical septal, apical inferior, and apical and anterior hypokinesis PHYSICAL EXAM: VITAL SIGNS: Reviewed. GENERAL: Well-developed in no acute distress. NECK: Supple. No JVD or thyromegaly LUNGS: Respirations even and unlabored. Lungs essentially clear to auscultation bilaterally. HEART: Regular rate and rhythm. S1 and S2 heard. EXTREMITIES: Normal range of motion. No clubbing or cyanosis. Peripheral pulses intact. 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 LDL goal less than 70. Continue additional cardiac medications N.p.o. at midnight Patient to undergo PCI of OM1 tomorrow with Dr. Urrutia Further recommendations pending patient course Nurse practitioner note has been reviewed by physician. Signing provider agrees with the documented findings, assessment, and plan of care documented by [employer] as a scribe. Objective - Vital Signs Vital signs: Vital Signs Temp 98.1 F 02/27/24 08:00 Pulse 70 02/27/24 08:00 Resp 16 02/27/24 08:00 BP 107/60 02/27/24 08:00 Pulse Ox 96 02/27/24 08:00 FiO2 Intake & Output 02/26/24 02/27/24 02/27/24 18:59 06:59 18:59 Intake Total 500 240 Output Total 800 Balance -300 240 Weight 87.4 kg 85.2 kg Intake: Oral 500 240 Output: Urine 800 Other: Voiding Method Urinal Toilet Urinal # Voids 4 # Bowel Movements 2 - Labs CBC & Chem 7: 02/27/24 07:35 02/26/24 04:44
--- NOTE | 2024-02-27 14:27 | P.PN ---
Subjective Progress Note Date: 02/27/24 patient is a 48-year-old gentleman with no significant past medical history who presented to the ER because of chest pain. Patient stated he was all right last night when he started experiencing chest pain that was central location, squeezing in nature, nonradiating, no aggravating or relieving factors as sociated with chest pain. Patient denies any shortness of breath. Patient was complaining of nausea but no vomiting. There is no complaint of orthopnea or PND. Because of the chest pain, patient presented the ER Initial lab work done in the ER showed WBC 10.7, hemoglobin 15.1, platelet count 241, sodium 137, potassium 4.2, BUN 25, creatinine 0.9, glucose 123, calcium 10.9, AST 38, ALT 42, troponin 1.10 EKG done in the ER showed heart rate of 78, ST segment elevation in V2 V3, ST segment depression seen in leads II, III and aVF, no T-wave inversions seen. Chest x-ray done in the ER showed acute cardiopulmonary process Space Buyer was activated and patient underwent cardiac cath showing mid LAD 100% stenosis, OM1 85% stenosis, S/p PCI mid LAD with a 2.5 x 33mm Xience, mid to distal LAD with a 2.5 x 33mm Xience and distal LAD with a 2.5 x 15mm Xience, Patient admitted to internal medicine service 02/25. Patient seen examined denies any chest pain. States he feels better 2D echo done showed LV systolic function with an EF of 40 to 45%, apical hypokinesis. 02/26. Patient seen and examined. No acute issues overnight. Vital signs stable REVIEW OF SYSTEMS: CONSTITUTIONAL: No fever, no malaise,. CARDIOVASCULAR: No chest pain, no palpitations, no syncope. PULMONARY: No shortness of breath, no cough, GASTROINTESTINAL: No diarrhea, no nausea, no vomiting, no abdominal pain. NEUROLOGICAL: No headaches, no weakness, PHYSICAL EXAMINATION: GENERAL: The patient is alert and oriented x3, not in any acute distress. Well developed, well nourished. HEENT: Pupils are round and equally reacting to light. EOMI. No scleral icterus. No conjunctival pallor. Normocephalic, atraumatic. No pharyngeal erythema. No thyromegaly. CARDIOVASCULAR: S1 and S2 present. No murmurs, rubs, or gallops. PULMONARY: Chest is clear to auscultation, no wheezing or crackles. ABDOMEN: Soft, nontender, nondistended, normoactive bowel sounds. No palpable organomegaly. MUSCULOSKELETAL: No joint swelling or deformity. EXTREMITIES: No cyanosis, clubbing, or pedal edema. NEUROLOGICAL: Gross neurological examination did not reveal any focal deficits. SKIN: No rashes. Assessment and plan Acute ST elevation [place] Hypertension hyperlipidemia Monitor vital signs Monitor CBC Monitor CMP Continue telemetry monitoring 2D echo done showed LV systolic function with an EF of 40 to 45%, apical hypok inesis. cardiac cath showing mid LAD 100% stenosis, OM1 85% stenosis, S/p PCI mid LAD with a 2.5 x 33mm Xience, mid to distal LAD with a 2.5 x 33mm Xience and distal LAD with a 2.5 x 15mm Xience, continue aspirin, Lipitor, Brilinta continue losartan Cardiology following, planning staged PCI of OM1 on Wednesday, n.p.o. to midnight Labs and medication were reviewed.. Continue same treatment. Continue with symptomatic treatment. Resume home medication. Monitor labs and vitals. DVT and GI prophylaxis. Further recommendations as per clinical course of the patient Dictation was produced using [employer] dictation software. please excuse any grammatical, word or spelling errors. Objective - Vital Signs Vital signs: Vital Signs Temp 98.1 F 02/27/24 08:00 Pulse 70 02/27/24 08:00 Resp 16 02/27/24 08:00 BP 107/60 02/27/24 08:00 Pulse Ox 96 02/27/24 08:00 FiO2 Intake & Output 02/26/24 02/27/24 02/27/24 18:59 06:59 18:59 Intake Total 500 240 Output Total 800 Balance -300 240 Weight 87.4 kg 85.2 kg Intake: Oral 500 240 Output: Urine 800 Other: Voiding Method Urinal Toilet Urinal # Voids 4 # Bowel Movements 2 - Labs CBC & Chem 7: 02/27/24 07:35 02/26/24 04:44
[2024-02-28] MEDS: SODIUM CHLORIDE 0.9% 1,000 ML in EMPTY BAG 1 BAG IV SCH (01:50)
[2024-02-28] MEDS: ASPIRIN 325 MG TAB PO ONE (05:24)
[2024-02-28] MEDS: ATORVASTATIN 80 MG TAB PO ONE (05:24)
[2024-02-28 08:15] LABS: Basophils % (A) 0 %; Eosinophils # (A) 0.1 k/uL (0-0.7); Eosinophils % (A) 2 %; HCT 41.1 % (39.0-53.0); Lymphocytes # (A) 2.1 k/uL (1.0-4.8); Lymphocytes % (A) 25 %; MCH 34.7 pg (25.0-35.0); MCV 102.2 fL (80.0-100.0); Macrocytosis Slight; Mean Platelet Volume 7.4; Monocytes # (A) 0.4 k/uL (0-1.0); Monocytes % (A) 5 %; Neutrophils # (A) 5.6 k/uL (1.3-7.7); Neutrophils % (A) 66 %; Platelet Count 227 k/uL (150-450); RBC 4.02 m/uL (4.30-5.90); RDW 12.5 % (11.5-15.5); WBC 8.4 k/uL (3.8-10.6)
[2024-02-28 08:33] LABS: African American GFR (CKD) >90 (>60 ml/min/1.73 sqM); Anion Gap 8 mmol/L; Blood Urea Nitrogen 24 mg/dL (9-20); Calcium 9.2 mg/dL (8.4-10.2); Carbon Dioxide 23 mmol/L (22-30); Chloride 107 mmol/L (98-107); Glucose 97 mg/dL (74-99); Non-African American GFR(CKD) >90 (>60 ml/min/1.73 sqM); Potassium 3.8 mmol/L (3.5-5.1); Sodium 138 mmol/L (137-145)
--- NOTE | 2024-02-28 09:09 | PN ---
PROGRESS NOTE SUBJECTIVE: 48-year-old gentleman, who is admitted to the hospital with acute myocardial infarction, underwent emergent cardiac catheterization and angioplasty of mid LAD. The patient also has a 90% stenosis involving the OM branch. He is going to have stenting of that vessel on Wednesday. An echocardiogram today shows that he has [id number] LV systolic dysfunction with an ejection fraction of 40% to 45% with apical hypokinesis. He is free of chest pain, difficulty in breathing, or palpitations. PHYSICAL EXAMINATION: GENERAL: Comfortable at rest. VITAL SIGNS: Stable. CHEST: Good air entry bilaterally. HEART: First and second heart sounds. No gallop. EXTREMITIES: Did not reveal any edema. Peripheral pulses were felt. MEDICATIONS: The patient is currently on, 1. Aspirin. 2. Lipitor. 3. Imdur. 4. Cozaar. 5. Brilinta. LABORATORY DATA: This morning revealed a hemoglobin of 14.2. Potassium is 4, creatinine is 0.8. His peak troponin is 42. ASSESSMENT: Acute anterior wall myocardial infarction, status post catheterization and angioplasty. PLAN: I will continue the patient on current medications. MMODL / IJN: [id number] /
--- NOTE | 2024-02-28 13:42 | P.PN ---
Subjective Progress Note Date: 02/28/24 patient is a 48-year-old gentleman with no significant past medical history who presented to the ER because of chest pain. Patient stated he was all right last night when he started experiencing chest pain that was central location, squeezing in nature, nonradiating, no aggravating or relieving factors as sociated with chest pain. Patient denies any shortness of breath. Patient was complaining of nausea but no vomiting. There is no complaint of orthopnea or PND. Because of the chest pain, patient presented the ER Initial lab work done in the ER showed WBC 10.7, hemoglobin 15.1, platelet count 241, sodium 137, potassium 4.2, BUN 25, creatinine 0.9, glucose 123, calcium 10.9, AST 38, ALT 42, troponin 1.10 EKG done in the ER showed heart rate of 78, ST segment elevation in V2 V3, ST segment depression seen in leads II, III and aVF, no T-wave inversions seen. Chest x-ray done in the ER showed acute cardiopulmonary process Bakery Products Checker was activated and patient underwent cardiac cath showing mid LAD 100% stenosis, OM1 85% stenosis, S/p PCI mid LAD with a 2.5 x 33mm Xience, mid to distal LAD with a 2.5 x 33mm Xience and distal LAD with a 2.5 x 15mm Xience, Patient admitted to internal medicine service 02/25. Patient seen examined denies any chest pain. States he feels better 2D echo done showed LV systolic function with an EF of 40 to 45%, apical hypokinesis. 02/26. Patient seen and examined. No acute issues overnight. Vital signs stable 02/27. Patient seen and examined. No chest pain, no shortness of breath. REVIEW OF SYSTEMS: CONSTITUTIONAL: No fever, no malaise,. CARDIOVASCULAR: No chest pain, no palpitations, no syncope. PULMONARY: No shortness of breath, no cough, GASTROINTESTINAL: No diarrhea, no nausea, no vomiting, no abdominal pain. NEUROLOGICAL: No headaches, no weakness, PHYSICAL EXAMINATION: GENERAL: The patient is alert and oriented x3, not in any acute distress. Well developed, well nourished. HEENT: Pupils are round and equally reacting to light. EOMI. No scleral icterus. No conjunctival pallor. Normocephalic, atraumatic. No pharyngeal erythema. No thyromegaly. CARDIOVASCULAR: S1 and S2 present. No murmurs, rubs, or gallops. PULMONARY: Chest is clear to auscultation, no wheezing or crackles. ABDOMEN: Soft, nontender, nondistended, normoactive bowel sounds. No palpable organomegaly. MUSCULOSKELETAL: No joint swelling or deformity. EXTREMITIES: No cyanosis, clubbing, or pedal edema. NEUROLOGICAL: Gross neurological examination did not reveal any focal deficits. SKIN: No rashes. Assessment and plan Acute ST elevation [place] Hypertension hyperlipidemia Monitor vital signs Monitor CBC Monitor CMP Continue telemetry monitoring 2D echo done showed LV systolic function with an EF of 40 to 45%, apical hypokinesis. cardiac cath showing mid LAD 100% stenosis, OM1 85% stenosis, S/p PCI mid LAD with a 2.5 x 33mm Xience, mid to distal LAD with a 2.5 x 33mm Xience and distal LAD with a 2.5 x 15mm Xience, continue aspirin, Lipitor, Brilinta continue losartan Cardiology following, planning staged PCI of OM1 today, currently n.p.o. Labs and medication were reviewed.. Continue same treatment. Continue with symptomatic treatment. Resume home medication. Monitor labs and vitals. DVT and GI prophylaxis. Further recommendations as per clinical course of the patient Dictation was produced using [employer] dictation software. please excuse any grammatical, word or spelling errors. Objective - Vital Signs Vital signs: Vital Signs Temp 97.6 F 02/28/24 04:00 Pulse 78 02/28/24 04:00 Resp 16 02/28/24 04:00 BP 108/68 02/28/24 04:00 Pulse Ox 94 L 02/27/24 23:39 FiO2 Intake & Output 02/27/24 02/28/24 02/28/24 18:59 06:59 18:59 Intake Total 480 Balance 480 Weight 85.6 kg Intake: Oral 480 Other: Voiding Method Toilet # Voids 1 1 - Labs CBC & Chem 7: 02/28/24 07:57 02/28/24 07:57 Labs: Abnormal Lab Results - Last 24 Hours (Table) 02/28/24 02/28/24 Range/Units 07:57 07:57 RBC 4.02 L (4.30-5.90) m/uL MCV 102.2 H (80.0-100.0) fL BUN 24 H (9-20) mg/dL
[2024-02-28] MEDS: IV FLUID CONTINUATION 1,000 ML IV ONE (13:50)
[2024-02-28] MEDS: LIDOCAINE 1% INJ 10MG/ML (20 ML MDV) SQ ONE (14:09)
[2024-02-28] MEDS: VERAPAMIL SYRINGE (5 MG/10 ML) INTRAARTER ONE (14:10)
[2024-02-28] MEDS: fentaNYL (PF) 50 MCG/1 ML VIAL IVP ONE (14:10)
[2024-02-28] MEDS: MIDAZOLAM 2 MG/2 ML VIAL IVP ONE (14:10)
[2024-02-28] MEDS: HEPARIN SODIUM 1,000 UN/ML (10ML VL) IVP ONE ×2 (14:12)
[2024-02-28] MEDS: NITROGLYCERIN 1000MCG/10ML SYRINGE INTRACORON ONE (14:27)
[2024-02-28] MEDS: IOPAMIDOL-370 100ML BTL INJ ONE ×2 (14:36)
[2024-02-28] MEDS: HEPARIN SODIUM,PORCINE 10,000 UNIT in SODIUM CHLORIDE 0.9% 1,000 ML IRRIGATION PRN (14:37)
[2024-02-28] MEDS: HEPARIN SODIUM,PORCINE (1 ML) 2,500 UNIT in SODIUM CHLORIDE 0.9% 250 ML IRRIGATION PRN (14:37)
--- NOTE | 2024-02-28 14:53 | P.PRCINT ---
Percutaneous Coronary Int. - Percutaneous Coronary Intervention Percutaneous Coronary Intervention: PROCEDURES PERFORMED: Left coronary angiography, ultrasound guided arterial access, PCI proximal OM1 with a 2.5 x 18mm Xience MIHIR, post dilated with a 3.5mm NC balloon INDICATION: Staged PCI CONSENT:The risks, benefits and alternative therapies for the above-mentioned procedure and for both sedation/analgesia as well as necessary blood product administration, if indicated, as they pertain to this patient were discussed with the patient. The patient has indicated understanding and acceptance of the risks and procedures discussed. PROCEDURE: After the risks, benefits and alternatives of the above mentioned pro cedure explained in detail with the patient, informed consent was obtained. Patient was taken to the catheterization lab and prepped and draped in usual fashion. Ultrasound guidance was used to assess for arterial access. 1% lidocaine was used to anesthetize the right radial artery. A 6-Italian sheath was placed in the right radial artery using modified Seldinger technique and ultrasound guidance. The decision was made to perform PCI of the OM1 branch. A 6-Italian CLS 3.5 guide was used to engage the left main which was mildly undersized however able to cannulate the circumflex easily. Next a 0.014 BMW wire was advanced in the distal OM 2 branch and a 0.014 was per wire was advanced into the distal OM1 branch. Predilation was performed with a 2.5 x 12 mm balloon. Next a 2.5 x 18 mm drug-eluting stent was placed in the proximal circumflex. There is diffuse ostial OM1 stenosis with the artery becoming much bigger distally. The distal edge of the stent was postdilated with a 3.5 mm noncompliant balloon. Final angiograms were performed. Pre-intervention there was 95% stenosis and JUANITA-3 flow postintervention there was less than 10% stenosis with JUANITA 3 flow. The right radial sheath was removed and a TR band was placed with hemostasis achieved. The patient tolerated the procedure well. Patient was transported back to the post catheterization holding area in stable condition. Conscious Sedation: Patient was monitored under the direct supervision of myself for conscious sedation using Versed and fentanyl for a total duration of 29 minutes HEMODYNAMICS: Ao: 142/71 SELECTIVE CORONARY ARTERIOGRAPHY: LEFT MAIN: The left main is a large caliber vessel which bifurcates into the LAD and circumflex. There is no significant stenosis. LEFT ANTERIOR DESCENDING CORONARY ARTERY: LAD is a large caliber vessel which wraps around to the apex. There is patent proximal, mid and distal LAD stents with mild 10-20% stenosis. LEFT CIRCUMFLEX CORONARY ARTERY: Left circumflex is a moderate caliber vessel with 95% stenosis of OM1 and small caliber OM 2 with 60-70% stenosis. RIGHT CORONARY ARTERY: The right coronary artery was not imaged, see separate report FINAL IMPRESSION: 1. CAD as described above with patent LAD stents, 95% OM1 and 60-70% small caliber OM2 stenosis 2. S/p staged PCI proximal OM1 with a 2.5 x 18mm Xience MIHIR, post dilated with a 3.5mm NC balloon PLAN: 1. Aggressive risk factor modification per most recent ACC/AHA guidelines. 2. Continue dual antiplatelets with aspirin and Brillinta for 12 months 3. Tobacco cessation discussed in detail with patient. Gave patient paperwork for [place] quit line. 4. Goal LDL less than 70
[2024-02-28] MEDS ORDERED: RX INFO: IV CONTRAST WAS GIVEN 1 EACH MISC MISCELLANE PRN (15:12)
[2024-02-29 06:50] LABS: Basophils % (A) 0 %; Eosinophils # (A) 0.1 k/uL (0-0.7); Eosinophils % (A) 1 %; HCT 43.3 % (39.0-53.0); HGB 14.4 gm/dL (13.0-17.5); Lymphocytes # (A) 1.3 k/uL (1.0-4.8); Lymphocytes % (A) 10 %; MCH 34.3 pg (25.0-35.0); MCHC 33.1 g/dL (31.0-37.0); MCV 103.6 fL (80.0-100.0); Macrocytosis Slight; Mean Platelet Volume 6.7; Monocytes # (A) 0.5 k/uL (0-1.0); Monocytes % (A) 4 %; Neutrophils % (A) 84 %; Platelet Count 233 k/uL (150-450); RBC 4.18 m/uL (4.30-5.90); WBC 13.1 k/uL (3.8-10.6)
[2024-02-29 07:03] LABS: Potassium 4.3 mmol/L (3.5-5.1)
[2024-02-29 07:04] LABS: African American GFR (CKD) >90 (>60 ml/min/1.73 sqM); Anion Gap 9 mmol/L; Blood Urea Nitrogen 20 mg/dL (9-20); Calcium 9.3 mg/dL (8.4-10.2); Carbon Dioxide 20 mmol/L (22-30); Chloride 108 mmol/L (98-107); Glucose 105 mg/dL (74-99); Non-African American GFR(CKD) >90 (>60 ml/min/1.73 sqM); Sodium 137 mmol/L (137-145)
[2024-02-29 10:33] VITALS: RESP 18; TEMP 97.7
[2024-02-29] MEDS: LOSARTAN 25 MG TAB PO SCH (11:27)
[2024-02-29] MEDS: METOPROLOL SUCCINATE (ER) 25 MG TAB.ER.24H PO SCH (11:29)
--- NOTE | 2024-02-29 11:46 | P.PN ---
Subjective Progress Note Date: 02/29/24 This is a 48-year-old male who presented to the hospital as an anterior STEMI. Patient underwent cardiac catheterization on 02/25/2024 revealing 100% mid LAD stenosis and 85% OM1 stenosis. Patient underwent stenting of the mid LAD, mid to distal LAD, and distal LAD. Patient denies chest pain or pressure. He denies shortness of breath. Vital signs are stable. Echocardiogram completed revealing ejection fraction 45 to 50%, apical anterior, apical septal, apical inferior, and apical and anterior hypokinesis 02/29/2024 Patient was seen and examined resting comfortably in bed. He denies any shortn ess of breath or chest discomfort. Yesterday he underwent successful PCI of the proximal OM1 by Dr. Urrutia. PHYSICAL EXAM: VITAL SIGNS: Reviewed. GENERAL: Well-developed in no acute distress. NECK: Supple. No JVD or thyromegaly LUNGS: Respirations even and unlabored. Lungs essentially clear to auscultation bilaterally. HEART: Regular rate and rhythm. S1 and S2 heard. EXTREMITIES: Normal range of motion. No clubbing or cyanosis. Peripheral pulses intact. No lower extremity edema ASSESSMENT: Anterior STEMI, status post stenting to the mid LAD, mid to distal LAD, distal LAD, and staged PCI of the proximal OM1 Mild ischemic cardiomyopathy, 45% Hyperlipidemia PLAN: Continue dual antiplatelet therapy with aspirin and Plavix for 12 months Continue high intensity statin. LDL goal 55. Will increase losartan, discontinue isosorbide and add metoprolol succinate From our standpoint patient may be discharged home. He will follow-up in the office with Dr. Piña next week. MARKER MACHINE note has been reviewed, I agree with a documented findings and plan of care. Patient was seen and examined. Objective - Vital Signs Vital signs: Vital Signs Temp 97.7 F 02/29/24 08:00 Pulse 86 02/29/24 08:00 Resp 18 02/29/24 08:00 BP 114/71 02/29/24 08:00 Pulse Ox 95 02/29/24 08:00 FiO2 Intake & Output 02/28/24 02/29/24 02/29/24 18:59 06:59 18:59 Intake Total 300 20 180 Balance 300 20 180 Weight 85.2 kg Intake: IV 300 20 Invasive Line 1 10 Invasive Line 2 10 Oral 180 Other: Voiding Method Toilet # Voids 2 1 - Labs CBC & Chem 7: 02/29/24 06:24 12 06:24 Labs: Abnormal Lab Results - Last 24 Hours (Table) 02/29/24 02/29/24 Range/Units 06:24 06:24 WBC 13.1 H (3.8-10.6) k/uL RBC 4.18 L (4.30-5.90) m/uL MCV 103.6 H (80.0-100.0) fL Neutrophils # 11.0 H (1.3-7.7) k/uL Chloride 108 H (98-107) mmol/L Carbon Dioxide 20 L (22-30) mmol/L Glucose 105 H (74-99) mg/dL
[2024-02-29 13:13] VITALS: BMI 27.7
[2024-02-29 13:30] VITALS: BP 109/73; PULSE 80
--- NOTE | 2024-02-29 13:57 | P.DS ---
Providers Date of admission: 02/25/24 09:57 Expected date of discharge: 02/29/24 Attending physician: Filippo La MD Consults: 02/25/24 09:54 Consult Physician Urgent Consulting Provider: Twin Piña Consult Reason/Comments: stemi Do you want consulting provider notified?: Already Contacted 02/25/24 11:47 Consult Physician Routine Consulting Provider: [facility] Consult Reason/Comments: Post Interventional Patient Do you want consulting provider notified?: Already Contacted 02/28/24 15:13 Consult Physician Routine Consulting Provider: [facility] Consult Reason/Comments: Post Interventional Patient Do you want consulting provider notified?: Already Contacted Primary care physician: Stated None Hospital Course: Discharge diagnoses; Acute ST elevation [place] Hypertension hyperlipidemia Hospital course; patient is a 48-year-old gentleman with no significant past medical history who presented to the ER because of chest pain. Patient stated he was all right last night when he started experiencing chest pain that was central location, squeezing in nature, nonradiating, no aggravating or relieving factors associated with chest pain. Patient denies any shortness of breath. Patient was complaining of nausea but no vomiting. There is no complaint of orthopnea or PND. Because of the chest pain, patient presented the ER Initial lab work done in the ER showed WBC 10.7, hemoglobin 15.1, platelet count 241, sodium 137, potassium 4.2, BUN 25, creatinine 0.9, glucose 123, calcium 10.9, AST 38, ALT 42, troponin 1.10 EKG done in the ER showed heart rate of 78, ST segment elevation in V2 V3, ST segment depression seen in leads II, III and aVF, no T-wave inversions seen. Chest x-ray done in the ER showed acute cardiopulmonary process Party Plan Salesperson was activated and patient underwent cardiac cath showing mid LAD 100% stenosis, OM1 85% stenosis, S/p PCI mid LAD with a 2.5 x 33mm Xience, mid to distal LAD with a 2.5 x 33mm Xience and distal LAD with a 2.5 x 15mm Xience, Patient admitted to internal medicine service 02/25. Patient seen examined denies any chest pain. States he feels better 2D echo done showed LV systolic function with an EF of 40 to 45%, apical hypokinesis. 02/26. Patient seen and examined. No acute issues overnight. Vital signs stable 02/27. Patient seen and examined. No chest pain, no shortness of breath. 02/28. Patient seen examined. Patient underwent cath S/p staged PCI proximal OM1 with a 2.5 x 18mm Xience MIHIR. Being discharged on aspirin, Plavix,, Lipitor, losartan PHYSICAL EXAMINATION: GENERAL: The patient is alert and oriented x3, not in any acute distress. Well developed, well nourished. HEENT: Pupils are round and equally reacting to light. EOMI. No scleral icterus. No conjunctival pallor. Normocephalic, atraumatic. No pharyngeal erythema. No thyromegaly. CARDIOVASCULAR: S1 and S2 present. No murmurs, rubs, or gallops. PULMONARY: Chest is clear to auscultation, no wheezing or crackles. ABDOMEN: Soft, nontender, nondistended, normoactive bowel sounds. No palpable organomegaly. MUSCULOSKELETAL: No joint swelling or deformity. EXTREMITIES: No cyanosis, clubbing, or pedal edema. NEUROLOGICAL: Gross neurological examination did not reveal any focal deficits. SKIN: No rashes. Dictation was produced using [employer] dictation software. please excuse any grammatical, word or spelling errors. Patient Condition at Discharge: Good Plan - Discharge Summary Discharge Rx Participant: Yes New Discharge Prescriptions: New Aspirin 81 mg PO DAILY 30 Days #30 tab Clopidogrel [Plavix] 75 mg PO DAILY 30 Days #30 tab Losartan [Cozaar] 25 mg PO DAILY 30 Days #30 tab Atorvastatin [Lipitor] 40 mg PO HS 30 Days #30 tab Nitroglycerin Sl Tabs [Nitrostat] 0.4 mg SUBLINGUAL Q5M PRN #30 tab PRN Reason: Chest Pain Metoprolol Succinate (ER) [Toprol XL] 25 mg PO DAILY 30 Days #30 tab Continue Acetaminophen/Caffeine [Excedrin Tension Headache] 1 tab PO Q4H PRN PRN Reason: Migraine Headache Discharge Medication List Acetaminophen/Caffeine [Excedrin Tension Headache] 1 tab PO Q4H PRN 02/25/24 [History] Aspirin 81 mg PO DAILY 30 Days #30 tab 02/29/24 [Rx] Atorvastatin [Lipitor] 40 mg PO HS 30 Days #30 tab 02/29/24 [Rx] Clopidogrel [Plavix] 75 mg PO DAILY 30 Days #30 tab 02/29/24 [Rx] Losartan [Cozaar] 25 mg PO DAILY 30 Days #30 tab 02/29/24 [Rx] Metoprolol Succinate (ER) [Toprol XL] 25 mg PO DAILY 30 Days #30 tab 02/29/24 [Rx] Nitroglycerin Sl Tabs [Nitrostat] 0.4 mg SUBLINGUAL Q5M PRN #30 tab 02/29/24 [Rx] Follow up Appointment(s)/Referral(s): None,Stated [Primary Care Provider] - 1-2 days Nidia Rios MD [STAFF PHYSICIAN] - 1 Week Discharge Disposition: HOME SELF-CARE
[2024-03-01] MEDS ORDERED: CLOPIDOGREL 75 MG TAB PO SCH (09:00)
== END 2024-02-29 15:30 | disposition home or self-care (01) | DRG 321 ==
LOC: EDBD → EC 08:45 → 2SICU 09:57 → 3SCARD 02-26 17:39
PROVIDERS: ADMIT Internal Medicine; ATTEND Internal Medicine
PROC: B211YZZ Fluoroscopy of Multiple Coronary Arteries using Other Contrast (ICD-10-PCS; 2024-02-25)
PROC: B240ZZ3 Ultrasonography of Single Coronary Artery, Intravascular (ICD-10-PCS; 2024-02-25)
PROC: 027036Z Dilation of Coronary Artery, One Artery with Three Drug-eluting Intraluminal Devices, Percutaneous Approach (ICD-10-PCS; principal; 2024-02-25 18:15)
PROC: 4A023N7 Measurement of Cardiac Sampling and Pressure, Left Heart, Percutaneous Approach (ICD-10-PCS; 2024-02-25 18:15)
PROC: B2101ZZ Fluoroscopy of Single Coronary Artery using Low Osmolar Contrast (ICD-10-PCS; 2024-02-28)
PROC: 027034Z Dilation of Coronary Artery, One Artery with Drug-eluting Intraluminal Device, Percutaneous Approach (ICD-10-PCS; 2024-02-28 12:50)
DX: I21.02 ST elevation (STEMI) myocardial infarction involving left anterior descending coronary artery (principal); E78.5 Hyperlipidemia, unspecified; G44.209 Tension-type headache, unspecified, not intractable; F17.210 Nicotine dependence, cigarettes, uncomplicated; I10 Essential (primary) hypertension; I25.10 Atherosclerotic heart disease of native coronary artery without angina pectoris; I25.5 Ischemic cardiomyopathy; Z82.49 Family history of ischemic heart disease and other diseases of the circulatory system; Z87.442 Personal history of urinary calculi; Z71.6 Tobacco abuse counseling
CPT/HCPCS: 36415; 71046; 80048; 80053; 80061; 83036; 83735; 84484; 85025; 85049; 85610; 85730; 92978; 93005; 93306; 93454; 93458; 96374; 99291